=== PATIENT | female | born 1990 | race Caucasian/White ===

== ENCOUNTER 2018-03-03 13:00 | Emergency (ER) | payer BC ==
[~2018-03-03] VITALS: Ht 170.2 cm; Wt 56.7 kg
--- NOTE | 2018-03-03 13:18 | NUR ---
PT IS IN ROOM #1B. DR MATSON EVALUATED THE PT.
--- NOTE | 2018-03-03 13:37 | NUR ---
PT WAS D/C'd TO HOME. D/C INSTRUCTIONS GIVEN TO THE PT.
[2018-03-03 13:39] VITALS: BP 121/69
== END 2018-03-03 13:40 | disposition home or self-care (01) ==
LOC: ER 13:00
DX: R07.2 Precordial pain (principal); F17.200 Nicotine dependence, unspecified, uncomplicated
CPT/HCPCS: 71045; 93005; A4663